=== PATIENT | male | born 1970 | race Caucasian/White ===

== ENCOUNTER 2025-03-31 06:09 | Day surgery (SDC) | payer BC ==
[2025-03-31] MEDS ORDERED: Propofol 200 MG/20 ML SDV IV ONE (06:10)
[2025-03-31] MEDS ORDERED: Ketamine 500 mg/10 ML MDV IV ONE (06:10)
[2025-03-31] MEDS ORDERED: Midazolam 1 MG/ML 2 ML SDV IV ONE (06:10)
[2025-03-31] MEDS ORDERED: Sodium Chloride 0.9% 10 ML Syringe FLUSH PRN (06:15)
[2025-03-31] MEDS: Lactated Ringers 1,000 ML IV SCH (07:04)
== END 2025-03-31 09:00 | disposition home or self-care (01) ==
LOC: FB.SDS 06:09
PROVIDERS: ATTEND Surgery
DX: Z12.11 Encounter for screening for malignant neoplasm of colon (principal); D12.8 Benign neoplasm of rectum; D12.6 Benign neoplasm of colon, unspecified; K57.30 Diverticulosis of large intestine without perforation or abscess without bleeding; K40.90 Unilateral inguinal hernia, without obstruction or gangrene, not specified as recurrent; E11.9 Type 2 diabetes mellitus without complications; E78.2 Mixed hyperlipidemia; E66.9 Obesity, unspecified; F17.210 Nicotine dependence, cigarettes, uncomplicated; Z80.0 Family history of malignant neoplasm of digestive organs; Z79.4 Long term (current) use of insulin; Z68.37 Body mass index [BMI] 37.0-37.9, adult; Z79.84 Long term (current) use of oral hypoglycemic drugs; Z79.82 Long term (current) use of aspirin; Z79.899 Other long term (current) drug therapy
CPT/HCPCS: 00811; 45385; 82947; 88305; A9270; J2003; J2250; J2704; J3490; J7120